=== PATIENT | female | born 1950 | race Caucasian/White ===

== ENCOUNTER 2018-04-15 11:11 | Outpatient (CLI) | payer MEDICARE, BC | END 2018-04-15 11:12 | disposition home or self-care (01) | LOC: BICMAMMO 11:11 | PROVIDERS: ATTEND Internal Medicine | DX: Z12.31 Encounter for screening mammogram for malignant neoplasm of breast (principal); Z80.3 Family history of malignant neoplasm of breast | CPT/HCPCS: 77063; 77067 ==

== ENCOUNTER 2018-07-20 13:32 | Outpatient (CLI) | payer MEDICARE, BC ==
--- NOTE | 2018-07-20 15:25 | BD ---
BONE DENSITOMETRY USING DEXA: Date: 07/20/18 HISTORY: Postmenopausal screening for osteoporosis. FINDINGS: Lumbar Spine: BMD (g/cm2) L1 0.686 T-Score: -2.8 Z-Score: -1.0 L2 0.753 T-Score: -2.5 Z-Score: -0.6 L3 0.767 T-Score: -2.9 Z-Score: -0.9 L4 0.873 T-Score: -1.7 Z-Score: 0.4 L1-L4 0.775 T-Score: -2.5 Z-Score: -0.5 Femoral Neck: 0.617 T-Score: -2.1 Z-Score: -0.4 Total Femur: 0.748 T-Score: -1.6 Z-Score: -0.2 IMPRESSION: Osteoporosis. POS: [facility]
== END 2018-07-20 13:33 | disposition home or self-care (01) ==
LOC: BICMAMMO 13:32
PROVIDERS: ATTEND Obstetrics & Gynecology
DX: Z13.820 Encounter for screening for osteoporosis (principal); M81.0 Age-related osteoporosis without current pathological fracture
CPT/HCPCS: 77080

== ENCOUNTER 2020-07-05 09:36 | Outpatient (CLI) | payer MEDICARE, BC ==
--- NOTE | 2020-07-05 12:24 | MRI ---
MRI OF THE LEFT WRIST WITHOUT CONTRAST: Date: 07/05/2020 INDICATION: History of left wrist pain after fall. COMPARISON: Radiographs of the left wrist dated 07/04/2020. FINDINGS: There is a nondisplaced transversely oriented distal pole fracture of the scaphoid with surrounding e jannet. There is maintenance of the fat signal intensity of the proximal pole of the scaphoid. There is a Grade I sprain of the dorsal band of the scapholunate ligament. The lunotriquetral ligaments are i ntact. TFC is intact. Small 3.7 mm cyst is seen adjacent to the ulnar styloid tip attachment of the T FC which may reflect sequelae of remote injury. There is mild ECU tendinosis. The extensor tendons ar e intact. Carpal tunnel contents are intact. The FCR and FCU tendons are intact. No additional marrow signal abnormality is evident. 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 IMPRESSION: 1. Nondisplaced transverse oriented distal pole scaphoid fracture. 2. Grade I sprain of the dorsal band scapholunate ligament. 3. Mild ECU tendinosis. 4. Small cyst seen near the ulnar styloid tip attachment of the TFC likely reflecting sequelae of re mote injury. 5. Mild STT and first CMC osteoarthrosis. POS: [facility]
== END 2020-07-05 09:37 | disposition home or self-care (01) ==
LOC: SCSMRI 09:36
PROVIDERS: ATTEND Orthopaedic Surgery
DX: S63.502A Unspecified sprain of left wrist, initial encounter (principal); S62.015A Nondisplaced fracture of distal pole of navicular [scaphoid] bone of left wrist, initial encounter for closed fracture; M18.12 Unilateral primary osteoarthritis of first carpometacarpal joint, left hand